=== PATIENT | female | born 1985 ===

== ENCOUNTER → 2024-02-07 09:51 | Outpatient (BNVA) | payer MEDICARE, SELFPAY | PROVIDERS: Referring Provider Neurological Surgery; Visit Provider Psychiatry & Neurology Neurology | DX: G43.019 Migraine without aura, intractable, without status migrainosus; E55.9 Vitamin D deficiency, unspecified; T75.4XXA Electrocution, initial encounter; X58.XXXA Exposure to other specified factors, initial encounter; F31.4 Bipolar disorder, current episode depressed, severe, without psychotic features | CPT/HCPCS: 36415; 82306; 83735; 84132; 99203; 99204 ==

== ENCOUNTER → 2024-02-08 12:36 | Outpatient (BNVA) | payer MEDICARE, MEDICAID, SELFPAY | PROVIDERS: Visit Provider Psychiatry & Neurology Neurology | DX: T75.4XXA Electrocution, initial encounter (principal); G43.019 Migraine without aura, intractable, without status migrainosus; R56.9 Unspecified convulsions; X58.XXXA Exposure to other specified factors, initial encounter; R55 Syncope and collapse | CPT/HCPCS: 95816 ==